=== PATIENT | male | born 1955 | race Caucasian/White ===

== ENCOUNTER 2018-05-03 09:45 | Emergency (ER) | payer OTHER, SELFPAY ==
[2018-05-03 09:47] VITALS: BP 161/86; PULSE 83; RESP 18; TEMP 37.1; O2SAT 99; BMI 32.5
--- NOTE | 2018-05-03 09:59 | RAD_ITS ---
STUDY: X-RAY - RIGHT HAND, ATTENTION FIFTH FINGER REASON FOR EXAM: Male, 62 years old. Laceration. TECHNIQUE: 3 view(s) of the finger were obtained. COMPARISON: None. FINDINGS: Normal metacarpal head. Normal metacarpophalangeal joint. There is demineralization of the proximal phalanx. There is demineralization of the middle phalanx. There is demineralization of the distal phalanx. There is moderate degenerative arthrosis of the proximal interphalangeal joint. There is moderate degenerative arthrosis of the distal interphalangeal joint. Soft tissue laceration. RAD/Finger(s) Min 2 Views IMPRESSION: Soft tissue laceration. Electronically Signed: Anish Pierre MD at 10:36 EST , Service support ,
[2018-05-03] MEDS: Diphth,Pertuss(Acell),Tet Vac 0.5 ML Vial IM (10:24)
--- NOTE | 2018-05-03 10:45 | ED.VISSUMM ---
- ER Visit Summary Date of Service: 05/03/18 Chief Complaint: [Laceration right small finger] History of Present Illness: The patient is a 62 M [presents to the emergency department after lacerating his right small finger while at work using a beveling bit that he was cutting pipe with. Patient states that somebody accidentally bumped into him causing his hand to touch the bit. Patient is right-hand dominant. Patient unsure of his last tetanus.] Physical Examination: [Right small finger-patient has a curvilinear 2.5 cm laceration over the dorsal lateral aspect of the right small finger onto the dorsum of the PIP joint. Patient has normal range of motion flexion extension at the PIP and DIP joints. He is neurovascular intact.] Test Results: [X-ray of the right small finger obtained showed no foreign bodies or fractures] Emergency Department Course and Treatment: [Laceration repair-wound sterilely draped and prepped. Wound anesthetized locally with 1% lidocaine total of 4 cc. Wound cleansed with Shur-Clens and irrigated with copious saline. There was a small oozing vessel that had to be ligated with 5-0 Vicryl to obtain good hemostasis. The wound was inspected and there was no evidence of tendon laceration. Wound was again irrigated with copious saline and using 5-0 nylon a total of 5 single interrupted sutures placed with good wound edge approximation. Patient tired procedure well. Clean dressing was applied.] Treatment Plan: [Patient will be given work restrictions and plan will be to have sutures removed in 10 days. Patient to return if increasing pain, redness, swelling, purulent drainage.] Disposition: [Discharged home in stable condition] Impression: [Laceration right small finger-simple repair 2.5 cm] This note was generated with [employer] software. It may contain incorrect words, spelling, and punctuation that were not noted in review of the chart prior to signing ED Disposition - Plan for ED Patient: Referrals: Amy Tinoco MD [Primary Care Provider] -
--- NOTE | 2018-05-03 10:48 | DCINST.ED_ITS ---
ED Disposition - Plan for ED Patient: Instructions: ED Laceration Hand Referrals: Amy Tinoco MD [Primary Care Provider] - [facility] [GROUP OF PHYSICIANS] - 10 Day for suture removal
== END 2018-05-03 11:30 | disposition home or self-care (01) ==
PROVIDERS: Emergency Provider Emergency Medicine; Family Provider Family Medicine; PCP Family Medicine
DX: S61.216A Laceration without foreign body of right little finger without damage to nail, initial encounter (principal); W26.8XXA Contact with other sharp object(s), not elsewhere classified, initial encounter; Y93.9 Activity, unspecified; Y92.89 Other specified places as the place of occurrence of the external cause; Y99.0 Civilian activity done for income or pay; I10 Essential (primary) hypertension
CPT/HCPCS: 12001; 73140; 90715; 99282

== ENCOUNTER 2021-01-11 00:09 | Emergency (ER) | payer OTHER, SELFPAY ==
[2021-01-11] VITALS (12 sets, daily range): BP systolic 91–155; BP diastolic 52–83; PULSE 54–63; RESP 14–19; TEMP 36.1; O2SAT 96–99; BMI 29.9
--- NOTE | 2021-01-11 00:12 | EKG12_ITS ---
Test Reason : STROKE Blood Pressure : / mmHG Vent. Rate : 060 BPM Atrial Rate : 060 BPM P-R Int : 216 ms QRS Dur : 112 ms QT Int : 464 ms P-R-T Axes : 064 046 042 degrees QTc Int : 464 ms Sinus rhythm with 1st degree A-V block Otherwise normal ECG Confirmed by ILA SMILEY, JOHNATHAN ([id number]), purchase request editor SHARLENE RODRIGUEZ ([id number]) on 01/13/2021 8:53:55 AM Referred By: LENNY Confirmed By:JOHNATHAN THORPE MD
--- NOTE | 2021-01-11 00:12 | CT_ITS ---
We are attempting to reach an attending provider to discuss findings. An addendum with communication details will be sent when the communication is complete. STUDY: CT HEAD STROKE PROTOCOL W/O CONTRAST INJECTION REASON FOR EXAM: Male, 65 years old. Neuro deficit, acute, stroke suspected slurred speech RADIATION DOSAGE (If Supplied By Facility): CTDIvol = ( ) mGy, DLP = ( ) mGycm TECHNIQUE: Transaxial CT imaging of the brain was performed without administration of intravenous contrast material. Individualized dose optimization techniques were used for this CT. COMPARISON: No relevant priors. FINDINGS: Normal soft tissue structures. Normal calvarium. There is mild cerebral atrophy with widening of the extra-axial spaces and ventricular dilatation. There are areas of decreased attenuation within the white matter tracts of the supratentorial brain, consistent with microvascular disease changes. Normal basal ganglia and thalami. Normal brainstem. There is mild cerebellar atrophy. There are focal areas of prior periventricular lacunar infarcts. There is no intracranial hemorrhage. There is a focus of low attenuation within the left side of the cerebellum suggesting prior ischemic change. There is also focus of low attenuation within the right frontal lobe suggesting prior ischemic change. Normal visualized paranasal sinuses. ASPECT score: 10 CT/STROKE Brain/Head without Cont IMPRESSION: Areas of prior ischemic change right frontal and left cerebellum without definitive evidence of acute infarct. There is no visualized hemorrhage. Recommend consideration for further imaging such as CT angiogram and/or MRI for further clarification. Electronically Signed: Madison Sykes MD at 0:27 EDT Tel , Service support ,
--- NOTE | 2021-01-11 00:22 | CT_ITS ---
STUDY: CTA HEAD AND NECK WITH CONTRAST REASON FOR EXAM: Male, 65 years old. Neuro deficit, acute, stroke suspected RADIATION DOSAGE (If Supplied By Facility): CTDIvol = ( 23.84 ) mGy, DLP = ( 709.44 ) mGycm TECHNIQUE: CT angiography was performed with a multi-detector CT scanner. Data acquisition was obtained from the skull base through the vertex following intravenous administration of IV 100mL [id number]-370. MIP images were reconstructed from the axial data set. Post-processing of the angiographic images was performed, with multiplanar reformation and 3D reconstruction. Individualized dose optimization techniques were used for this CT. COMPARISON: No relevant priors. FINDINGS: Normal bilateral petrous carotid arteries. Normal right cavernous carotid artery with a normal supraclinoid bifurcation. Normal left cavernous carotid artery with a normal supraclinoid bifurcation. There is slight narrowing in the distal right A1 segment. There is a beaded appearance of the right A1 segment and the left M2 segment suggesting an element of fibromuscular dysplasia. Normal left A1 segments of the anterior cerebral artery. Normal intact anterior communicating artery (ACOM). Normal bilateral A2 segments of the anterior cerebral arteries. Normal right M1 and M2 segments of the middle cerebral arteries, with a normal M1 bifurcation. The left M1 is of normal caliber. There is a lesser caliber of the left side insular M2 segment compared to the right. The vessel can be followed but is narrowed. Normal right posterior communicating artery (PCOM). Normal left posterior communicating artery (PCOM). There is an atretic appearance of the right-sided vertebral artery. There is a dominant left-sided vertebral artery. Normal basilar artery with a normal basilar bifurcation. The visualized bilateral superior cerebellar (SCA) arteries are normal. There is a hypoplastic right-sided P1 segment. There is a well contrasted posterior communicating artery. Normal bilateral P1, P2 and visualized diminutive P3 segments of the posterior cerebral arteries. There is limited visualization of the distal vessels allowing for technique. There is no demonstrated aneurysm of the elim ira of Rubio. There is visualized prior ischemic change in the right frontal lobe. The there is a small focus of prior ischemic change within the left cerebellum. AORTIC ARCH: There is partial calcification of the aortic arch. There is a bovine arch with a common takeoff of the left common carotid with the innominate. There is soft plaque and mild distention of the proximal left subclavian artery. RIGHT CAROTID ARTERIES: Normal right common carotid artery (CCA). There is minimal soft plaque demonstrated. There is mild atherosclerotic plaque formation of the origin of the right internal carotid artery with less than 50% cross sectional diameter stenosis. Normal visualized cervical portion of the right internal carotid artery. Normal origin of the right external carotid artery (ECA). LEFT CAROTID ARTERIES: There is atherosclerotic tortuous elongation of the left common carotid artery. There is mild atherosclerotic plaque formation with minimal narrowing of the left carotid bulb. Normal origin of the left internal carotid (ICA) artery without a hemodynamically significant stenosis. Normal visualized cervical portion of the left internal carotid artery. Normal origin of the left external carotid artery (ECA). VERTEBRAL ARTERIES: There is a mildly narrowed appearance of the takeoff of the left vertebral artery there is a hairpin turn. There is a greater caliber left vertebral artery throughout compared to the somewhat atretic appearing right-sided vertebral artery which remains patent and visualized into the foramen magnum where it is atretic and not well-visualized. There is a patulous distended appearance of the proximal esophagus. It measures up to 3.[address]/STROKE CTA Head AND Neck W/Con IMPRESSION: Atretic and/or stenotic right vertebral artery. No visualized large vessel occlusion. Diminutive appearance of the left M2 segment without visualized focal thrombus. Prior ischemic change right frontal lobe left cerebellum. No visualized focal area of abnormal enhancement. Findings are consistent with atrophy. There is atherosclerotic disease within the left proximal subclavian without occlusion. There is less than 50% stenosis of the right internal carotid artery no significant stenosis of the left internal carotid artery. Incidental visualization of a patulous distended proximal esophagus which can indicate distal obstruction and/or possible connective tissue disease. N.B. : The above Results were Read Back by Madison Sykes MD to Dr. Mandeep DO, and understanding confirmed on 01/11/2021 01:11:20 (ET). Electronically Signed: Madison Sykes MD at 1:11 EDT Tel , Service support ,
[2021-01-11 00:28] LABS: Absolute Lymphocyte Count 3.95 X10^3/uL (0.83-4.51); Absolute Neutrophil Count 4.4 X10^3/uL (2.0-7.7); Basophil# 0.04 X10^3/uL; Basophil% 0.4 % (0-1); Eosinophil# 0.21 X10^3/uL; Eosinophils% 2.2 % (0-5); Hematocrit 45.1 % (40-54); Hemoglobin 14.6 g/dL (13.0-16.5); Lymphocyte # 3.95 X10^3/ul (0.83-4.51); Lymphocyte % 41.8 % (19-41); Mean Corp Hgb Conc 32.4 g/dL (32-36); Mean Corpuscular Hgb 27.5 pg (27.0-32.0); Mean Corpuscular Volume 84.9 fL (80-94); Mean Platelet Vol. 10.7 fl (6.2-12.0); Monocyte# 0.83 X10^3/uL; Monocyte% 8.8 % (0-10); NRBC Flagged by Analyzer 0 % (0-5); Neutrophil % 46.5 % (47-70); Platelet Count 179 K/mm3 (150-450); RBC Distribution Width CV 13.5 % (11.6-14.6); RBC Distribution Width SD 42.2 fl (35.1-43.9); Red Blood Count 5.31 M/mm3 (4.6-6.2); White Blood Count 9.5 K/mm3 (4.4-11.0)
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
--- NOTE | 2021-01-11 00:37 | ED.RN ---
PT CONTINUOUSLY REPEATING YOU DON'T LIKE ME, YOU DON'T FUCKING CARE ABOUT ME. NOBODY LOVES ME OR GIVES A FUCK ABOUT ME. FUCK THIS, FUCK ME, FUCK YOU ALL.
[2021-01-11 00:46] LABS: Anion Gap 9 (5-15); BUN 17 mg/dL (7-18); Calcium,Total 9.1 mg/dL (8.5-10.1); Chloride 111 mmol/L (98-107); Creatinine, Serum 0.74 mg/dL (0.70-1.30); EST Glomerular Filtration Rate 113 mL/min (>60); Est Glom Filt Rate - Afr Amer 137 mL/min (>60); Estimated Creatinine Clearance 110.69 ml/min; Glucose 125 mg/dL (74-106); Potassium 3.6 mmol/L (3.5-5.1); Sodium Level 141 mmol/L (136-145); Troponin-I HS 13 pg/mL (3.0-78.0)
[2021-01-11] MEDS: Ondansetron 4 MG/2 ML Vial IV (01:00)
[2021-01-11 01:02] LABS: International Normalized Ratio 1.1; Prothrombin Time (Protime)PT. 13.8 SECONDS (11.7-14.9)
[2021-01-11 01:03] LABS: Partial Thromboplast Time 27.2 Seconds (24.1-36.2)
--- NOTE | 2021-01-11 01:05 | RAD_ITS ---
STUDY: X-RAY CHEST REASON FOR EXAM: Male, 65 years old. Neuro deficit, acute, stroke suspected TECHNIQUE: Single AP portable view of the chest. COMPARISON: None. FINDINGS: There is minimal lower lobe atelectasis. There is no demonstrated pleural abnormality. There is mild cardiac enlargement. Normal mediastinum and jane. Normal visualized pulmonary arteries. There is atherosclerotic calcification of the aortic arch with tortuosity. Normal visualized thoracic spine. Normal visualized ribs, clavicles, and shoulders. There is no demonstrated abnormality of the visualized soft tissue structures of the upper abdomen. RAD/Chest 1 View IMPRESSION: Mild cardiac enlargement. Lower lobe atelectasis. Electronically Signed: Madison Sykes MD at 1:54 EDT Tel , Service support ,
[2021-01-11 01:31] LABS: Amphetamine Urine VISTA NEGATIVE (<1000 ng/mL); Barbiturate Urine VISTA NEGATIVE (< 200 ng/mL); Benzodiazepine Urine VISTA NEGATIVE (< 200 ng/mL); Cocaine Urine VISTA NEGATIVE (< 300 ng/mL); Ecstacy Urine VISTA NEGATIVE (< 500 ng/mL); Methadone Urine VISTA NEGATIVE (< 300 ng/mL); PCP Urine VISTA NEGATIVE (< 25 ng/mL); THC Urine VISTA NEGATIVE (< 50 ng/mL); Vista UDS pH Range 5
--- NOTE | 2021-01-11 01:36 | ED.RN ---
STROKE ALERT AND CHARTING DOCUMENTATION DISCONTINUED PER DR. GALVEZ.
--- NOTE | 2021-01-11 01:50 | ED.RN ---
GIRLFRIEND MAGUI [phone]; DAUGHTER JEFFERSON [phone]
== END 2021-01-11 10:00 | disposition home or self-care (01) ==
PROVIDERS: Emergency Provider Student in an Organized Health Care Education/Training Program
DX: F10.129 Alcohol abuse with intoxication, unspecified (principal); E11.9 Type 2 diabetes mellitus without complications; I10 Essential (primary) hypertension; E66.9 Obesity, unspecified; Z79.84 Long term (current) use of oral hypoglycemic drugs; Z79.899 Other long term (current) drug therapy; Y90.8 Blood alcohol level of 240 mg/100 ml or more
CPT/HCPCS: 36415; 70450; 70496; 70498; 71045; 80048; 80307; 82077; 84484; 85025; 85610; 85730; 93005; 96374; 99285; Q9967; A4216; J2405

== ENCOUNTER → 2022-02-24 | Outpatient (CLI) | payer OTHER, SELFPAY ==
--- NOTE | 2022-02-24 15:43 | MRI_ITS ---
STUDY: MRA NECK WITH AND WITHOUT CONTRAST REASON FOR EXAM: Male, 66 years old. NEW ONSET HEADACHESX 4 MONS, PRIOR TIA 12/2020 TECHNIQUE: 3-D yete-rj-shpmly (TOF) imaging was performed in an 1.5 T MRI scanner. CLARISCAN IV 20 CC was administered for the contrast enhanced images. COMPARISON: None. FINDINGS: RIGHT CAROTID ARTERIES: Normal right common carotid artery (CCA). Normal right common carotid bulb. Normal origin of the right internal carotid (ICA) artery without a hemodynamically significant stenosis. Normal visualized cervical portion of the right internal carotid artery. Normal origin of the right external carotid artery (ECA). LEFT CAROTID ARTERIES: Normal left common carotid artery (CCA). Normal left common carotid bulb. Normal origin of the left internal carotid (ICA) artery without a hemodynamically significant stenosis. Normal visualized cervical portion of the left internal carotid artery. Normal origin of the left external carotid artery (ECA). VERTEBRAL ARTERIES: Left vertebral is dominant. There is diffuse narrowing of the right vertebral which terminates in PICA consistent with normal variant MRI/MRA Neck WITH and W/O Contrast IMPRESSION: Normal bilateral cervical carotid and vertebral arteries. Electronically Signed: Parviz Jernigan MD at 17:53 EST ,
--- NOTE | 2022-02-24 15:43 | MRI_ITS ---
STUDY: MRI BRAIN WITH AND WITHOUT CONTRAST REASON FOR EXAM: Male, 66 years old. NEW ONSET HEADACHES X 4 MONS, PRIOR TIA 12/2020 TECHNIQUE: Multiplanar multisequence imaging of the brain was performed without and following the administration of intravenous contrast. 20 cc clariscan given intravenously. COMPARISON: Noncontrast head CT 01/11/2021 FINDINGS: The ventricles, cisterns, and sulci are within are prominent. Extensive white matter T2 signal abnormality. There is no restricted diffusion to suggest acute ischemia or infarction. No susceptibility artifact to suggest intracranial hemorrhage or mineralization. Major intracranial signal voids are preserved. There is no midline shift, mass effect, or extra axial fluid collections are seen. No CP angle or IAC mass is seen. The orbits are unremarkable. The sella turcica and craniovertebral junction are within normal limits. The visualized paranasal sinuses are clear. The mastoid air cells are clear. No abnormal enhancement is seen. MRI/Brain W/WO Contrast IMPRESSION: No intracranial hemorrhage, acute infarct, or space occupying lesion seen. Electronically Signed: Jack Guerra MD at 22:03 EST ,
--- NOTE | 2022-02-24 15:43 | MRI_ITS ---
STUDY: MRA OF THE HEAD WITHOUT CONTRAST REASON FOR EXAM: Male, 66 years old. NEW ONSET HEADACHESX 4 MONS, PRIOR TIA 12/2020 TECHNIQUE: 3-D lisl-xr-brhhwp (TOF) imaging was performed with MIPs. The study was performed unenhanced. COMPARISON: None. FINDINGS: Normal bilateral petrous carotid arteries. Normal right cavernous carotid artery with a normal supraclinoid bifurcation. Normal left cavernous carotid artery with a normal supraclinoid bifurcation. Normal right A1 segments of the anterior cerebral artery. Normal left A1 segments of the anterior cerebral artery. Normal intact anterior communicating artery (ACOM). Normal bilateral A2 segments of the anterior cerebral arteries. Normal right M1 and M2 segments of the middle cerebral arteries, with a normal M1 bifurcation. Normal left M1 and M2 segments of the middle cerebral arteries, with a normal M1 bifurcation. Normal right posterior communicating artery (PCOM). Normal left posterior communicating artery (PCOM). Left vertebral is normal. Distal right vertebral was not visualized Normal basilar artery with a normal basilar bifurcation. The visualized bilateral superior cerebellar (SCA) arteries are normal. Normal bilateral P1, P2 and visualized P3 segments of the posterior cerebral arteries. There is no demonstrated aneurysm of the [place]. There is no major vessel occlusion or hemodynamically significant stenosis. MRI/MRA Head ONLY without Contrast IMPRESSION: Nonvisualization of the distal right vertebral possibly due to proximal obstruction. Otherwise normal MRA of the brain Electronically Signed: Parviz Jernigan MD at 17:52 EST ,
[2022-02-24 16:25] LABS: CREATININE FINGERSTICK < 0.9 mg/dL (0.70-1.30); EGFR FINGERSTICK > 60.0000 mL/min (>60)
== END | disposition home or self-care (01) ==
LOC: MRI 15:35
PROVIDERS: PCP Family Medicine; Visit Provider Nurse Practitioner Primary Care
DX: R51.9 Headache, unspecified (principal); Z86.73 Personal history of transient ischemic attack (TIA), and cerebral infarction without residual deficits
CPT/HCPCS: 70544; 70549; 70553; A9575; A4216

== ENCOUNTER 2022-06-14 11:05 | Emergency (ER) | payer OTHER, MEDICARE, SELFPAY ==
[2022-06-14 11:07] VITALS: BP 157/70; PULSE 60; RESP 16; TEMP 36.6; O2SAT 100; BMI 31.1
--- NOTE | 2022-06-14 12:06 | EDS_ITS ---
HPI History of Present Illness HPI Narrative: Patient presents with lacerations to his right middle and ring fingers that occurred today while he was at work. Patient states he was using a drill and the piece of metal that he was drilling was caught in the drill and began to spin around. Patient states he was hit by the edge of the metal piece. Patient denies any paresthesias or weakness. Patient states bleeding stopped after several minutes of pressure. Patient is unsure of his last tetanus. Chief Complaint: Laceration Informant: patient Occured/Mechanism Mechanism/Context: Yes blunt trauma Onset/Context/Timing Onset: Today Context: Sudden Onset Timing: Continuous Quality of Pain: Dull Location: Right middle and ring fingers Worsened by: Nothing Relieved by: Nothing Associated Symptoms Associated Symptoms: Negative for Parasthesia, Weakness or Loss of Funtion Narrative Tetanus Immunization: Unknown [facility] Medical History (Updated 06/14/22 @ 16:[address] Jhon Rodriguez DO) DM type 2 (diabetes mellitus, type 2) HTN (hypertension) Home Medications metformin 500 mg tablet,extended release 24 hr 500 mg PO DAILY 01/11/21 [History Last Taken Unknown] metoprolol succinate 50 mg tablet,extended release 24 hr 50 mg PO DAILY 01/11/21 [History Last Taken Unknown] cephalexin 500 mg capsule 500 mg PO Q6 #40 CAPSULES 06/14/22 [Rx Last Taken Unknown] Allergy/AdvReac Type Severity Reaction Status Date / Time No Known Allergies Allergy Verified 06/14/22 11:30 Surgical History (Updated 06/14/22 @ 12:[address] Jhon Rodriguez DO) History of gastric surgery History of surgery on right wrist Social History Smoking Status: Never smoker alcohol intake: current alcohol intake frequency: holidays/special occasions only Alcohol type: hard liquor ROS ROS ED Constitutional Constitutional ED: Denies chills or fever(s) Eyes Eyes: Denies blurry vision or change in vision ENT ENT ED: Denies rhinorrhea or sore throat Cardiovascular Cardiovascular: Denies chest pain or palpitations Respiratory/Chest Respiratory/Chest: Denies cough or dyspnea Gastrointestinal Gastrointestinal: Denies nausea or vomiting Genitourinary Genitourinary ED: Denies dysuria or hematuria Musculoskeletal Musculoskeletal: Denies back pain or neck pain Integumentary Denies abscess or rash Neurologic Neurologic: Denies headache(s) or weakness Allergic/Immunologic Allergic/Immunologic ED: Denies mouth swelling or urticaria EXAM Physical Exam Const Vital Signs: 06/14/22 11:07 Temperature 97.8 F Temperature Source Temporal Pulse Rate 60 Respiratory Rate 16 Blood Pressure 157/70 H Blood Pressure Mean 99 Pulse Ox 100 Oxygen Delivery Method Room Air Positive well nourished and well developed General Appearance ED: well developed and NAD HEENT Reports moist mucous membranes Neck full ROM and supple Extremity Extremity Narrative: There is a 1.5 cm laceration over the distal phalanx of the right middle finger near the nail plate. There is moderate gapping of the wound margins. There is no bleeding noted. There is no bony crepitance or step-off noted. There is a 2 cm full-thickness linear laceration over the ulnar aspect of the proximal phalanx of the right middle finger. There is no bony crepitance or step-off noted. There are no foreign bodies noted. There is no active bleeding noted. There is also a 2 cm full-thickness linear laceration over the volar aspect of the base of the proximal phalanx of the right ring finger that extends along the radial aspect of the proximal phalanx. There is mild gapping of the wound margins. There are no foreign bodies noted. There is no active bleeding noted. There is no bony crepitance or step-off noted. There is also a 0.5 cm full- thickness linear laceration on the palmar aspect of the right hand in the webspace between the ring and middle fingers. There is moderate gapping of the wound margins. There is no bleeding. There are no foreign bodies noted. There is full range of motion of the MP, PIP, and DIP joints of all digits. Capillary refills less than 2 seconds in all digits. Sensation was intact to light touch in all digits. Neuro oriented x3, CN's II-XII intact bilaterally, moves all extremities, no focal motor deficits and no sensory deficits noted Sensorium / Orientation: alert Motor Exam: strength 5/5 throughout Psych mental status grossly normal MDM MDM MDM Narrative Medical decision making narrative: I do not feel there is a fracture in the fingers. He has full range of motion. There is no obvious deformity. Therefore, x-rays will not be necessary at this time. Treatment and Re-Evaluation Narrative: The wounds were cleaned and irrigated with copious amounts of normal saline. The wounds were anesthetized with 1% lidocaine locally and the right middle finger was anesthetized with 1% plain lidocaine via digital block. The wound on the ulnar aspect of the proximal phalanx of the right middle finger was closed with 5 simple interrupted #4-0 Ethilon sutures. The wound on the radial aspect of the proximal phalanx of the right ring finger was closed with 5 simple interrupted #4-0 Ethilon sutures. The wound on the palmar aspect of the right hand between the ring and long fingers was closed with 2 simple interrupted #4-0 Ethilon sutures. The wound at the tip of the right middle finger was closed with 3 simple interrupted #4-0 Ethilon sutures. This was all done under sterile technique. Patient tolerated the procedure well. Bacitracin dressings were applied. Patient was given a dose of Keflex here. Patient was given a prescription for Keflex. Patient was instructed to follow-up with his primary care physician or the [facility] in 5 days for wound recheck and suture removal. Patient understood and was agreeable with the plan. All questions were answered. Procedures Lacerations Distal phalanx right middle finger: Length: 0.5 cm Depth: Sub Q Shape: Linear Prep: Sterile Conditions and Chlorhexadine Laceration repair: Digital block, Irrigated, Lidocaine and Skin sutures Irrigated (ml): 100 Number of Sutures/Addison: 3 Suture Information: Ethilon, Simple and 4-0 Right palm between ring and middle fingers: Length: 0.5 cm Depth: Sub Q Shape: Linear Prep: Sterile Conditions and Chlorhexadine Laceration repair: Irrigated, Lidocaine, Local, Skin sutures and Wound explored Irrigated (ml): 100 Number of Sutures/Addison: 2 Suture Information: Ethilon, Simple and 4-0 Proximal phalanx right middle finger: Length: 2 cm Depth: Sub Q Shape: Linear Prep: Sterile Conditions and Chlorhexadine Laceration repair: Irrigated, Lidocaine, Local, Skin sutures and Wound explored Irrigated (ml): 100 Number of Sutures/Addison: 5 Suture Information: Ethilon and 4-0 Proximal phalanx right ring finger: Length: 2 cm Depth: Sub Q Shape: Linear Prep: Sterile Conditions and Chlorhexadine Laceration repair: Irrigated, Lidocaine, Local, Skin sutures and Wound explored Irrigated (ml): 100 Number of Sutures/Addison: 5 Suture Information: Ethilon and 4-0 Discharge Plan Triage Chief Complaint: Laceration ED Provider: Jhon Rodriguez Dx/Rx/DC Orders Clinical Impression: Laceration of right middle finger, Laceration of right ring finger Instructions: ED Laceration, Hand: All Closures Prescriptions: New cephalexin [cephalexin] 500 mg capsule 500 mg PO Q6 Qty: 40 0RF No Action metoprolol succinate 50 mg tablet extended release 24 hr 50 mg PO DAILY metformin 500 mg tablet extended release 24 hr 500 mg PO DAILY Stand Alone Forms: Work Status Form Primary Care Provider: Amy Fair Referrals: Amy Fair, [Primary Care Provider] - 7 Days for suture removal [facility] [Non-Staff] - 7 Days for suture removal Disposition Disposition: Home, Self Care
[2022-06-14] MEDS: Diphth,Pertuss(Acell),Tet Vac 0.5 ML Vial IM (13:00)
[2022-06-14] MEDS: Lidocaine 1% (20 ml mdv) 20 ML Vial INFILT (13:04)
[2022-06-14 15:11] VITALS: RESP 16
[2022-06-14] MEDS: Cephalexin 500 MG Capsule PO (16:07)
[2022-06-14 16:44] VITALS: RESP 17
--- NOTE | 2022-06-14 16:45 | ED.RN ---
PER DR. CASH, APPLY BACITRACIN, NONADHERENT PAD, AND GAUZE WRAP TO SUTURE SITES.
== END 2022-06-14 16:47 | disposition home or self-care (01) ==
PROVIDERS: Emergency Provider Emergency Medicine; PCP Family Medicine; Visit Provider Emergency Medicine
DX: S61.212A Laceration without foreign body of right middle finger without damage to nail, initial encounter (principal); E11.9 Type 2 diabetes mellitus without complications; S61.214A Laceration without foreign body of right ring finger without damage to nail, initial encounter; I10 Essential (primary) hypertension; W26.8XXA Contact with other sharp object(s), not elsewhere classified, initial encounter; Y99.0 Civilian activity done for income or pay; Z23 Encounter for immunization
CPT/HCPCS: 12002; 90471; 90715; 99283

== ENCOUNTER 2023-02-01 14:06 | Emergency (ER) | payer OTHER, SELFPAY ==
[2023-02-01 14:09] VITALS: BP 167/79; PULSE 55; RESP 16; TEMP 36.1; O2SAT 96
--- NOTE | 2023-02-01 14:23 | ED.RN ---
THIS RN GAVE PATIENT PAMPHLET AND INFORMATION TO GO TO THE [facility] AFTER HIS ED VISIT TO COMPLETE HIS DRUG SCREEN FOR WORKMAN'S COMP. PT VERBALIZES UNDERSTANDING.
--- NOTE | 2023-02-01 14:24 | EDS_ITS ---
HPI <ZINA Bosch - Last Filed: 02/01/23 15:31> History of Present Illness Chief Complaint: Upper Extremity Injury Narrative Narrative: 67-year-old male sustained an injury at work where his left ring finger was smashed between a brass bar and a table amputating the fingertip. Bleeding is controlled with a gauze dressing. He denies weakness or paresthesias. Last tetanus unknown. PFSH <ZINA Bosch - Last Filed: 02/01/23 15:31> PFSH Medical History DM type 2 (diabetes mellitus, type 2) HTN (hypertension) Laceration of right middle finger Laceration of right ring finger Home Medications metformin 500 mg tablet,extended release 24 hr 500 mg PO DAILY 01/11/21 [History Last Taken Unknown] metoprolol succinate 50 mg tablet,extended release 24 hr 50 mg PO DAILY 01/11/21 [History Last Taken Unknown] losartan 50 mg tablet ea PO 06/22/22 [History Last Taken Unknown] omeprazole 40 mg capsule,delayed release ea PO 06/22/22 [History Last Taken Unknown] simvastatin 40 mg tablet ea PO 06/22/22 [History Last Taken Unknown] Allergy/AdvReac Type Severity Reaction Status Date / Time No Known Allergies Allergy Verified 02/01/23 14:07 Surgical History History of gastric surgery History of surgery on right wrist Social History Smoking Status: Never smoker alcohol intake: current alcohol intake frequency: holidays/special occasions only Alcohol type: hard liquor ROS <ZINA Bosch - Last Filed: 02/01/23 15:31> ROS ED ROS Narrative Neuro: Negative for motor/sensory dysfunction. Skin: Positive for wound. Musc: Positive for finger pain, trauma. Heme: Negative for easy bruising, bleeding, lymphadenopathy. EXAM <ZINA Bosch - Last Filed: 02/01/23 15:31> Physical Exam Narrative Exam Narrative: CONST: Patient sitting in no acute distress. EYES: Normal inspection. NECK: Normal inspection. RESP: No respiratory distress, CTAB. CVS: Regular rate and rhythm, no murmur, no gallop. SKIN: Color normal, no rash, warm, dry, intact. EXTREMITIES: Skin avulsion of the left ring finger tip, no involvement of the nail. Slow active bleeding, no visible or palpable bone exposed. Full ROM of all joints, normal motor and sensory function in median radial and ulnar distributions, 2+ radial pulse. NEURO: Oriented x4. PSYCH: Normal affect. Const Vital Signs: 02/01/23 14:09 Temperature 97.0 F L Temperature Source Temporal Pulse Rate 55 L Respiratory Rate 16 Blood Pressure 167/79 H Blood Pressure Mean 108 Pulse Ox 96 Oxygen Delivery Method Room Air [facility] <ZINA Bosch - Last Filed: 02/01/23 15:31> [facility] Narrative Medical decision making narrative: Patient hasworkplace injury causing skin avulsion of the left ring finger. There is no exposed bone. Slow active bleeding. Neurovascularly intact. X-ray shows no bony involvement so this is not an open fracture. I performed a digital block, prepped and draped in sterile condition, thoroughly cleansed with soap and water and placed 5 simple interrupted sutures of 4-0 Ethilon to close the area as best as possible and limit bleeding. Bulky bandages applied with a splint and tetanus updated. He will follow-up with occupational health and was discharged in stable condition. I have personally performed a face to face assessment of the patient and have reviewed the JOHN Note. I performed a substantive portion of the visit including all aspects of the following. My brice findings include: History is a 67-year-old male [id number]. At work today had his left ring finger caught between a bar and piece of metal. At the distal tip of the left ring finger amputated. Unsure of his last tetanus. No other injuries. Tetanus to be updated. Exam is [well-appearing 67-year-old male. Vital signs stable afebrile. HEENT exam unremarkable. Lungs clear. Heart regular rhythm no murmur. Chest wall and ribs nontender. Abdomen soft nontender. In all 4 extremities. Neurovascular intact. Left hand, left ring finger at the distal tip soft tissues been amputated. There is good coverage of the distal phalanx. There is no exposed bone. Minimal oozing of blood. No pulsatile bleeding. Normal range of motion. Normal touch sensation. Neurologic exam is normal. He is awake and alert.] Medical Decision Making [67-year-old male. Left ring finger distal tip soft tissue amputation. Tetanus updated. X-ray. Will be sutured closed.] Other additions or changes: [None] <Dr. Timmy Vela MD - Last Filed: 02/01/23 15:01> [facility] Narrative Medical decision making narrative: I have personally performed a face to face assessment of the patient and have reviewed the JOHN Note. I performed a substantive portion of the visit including all aspects of the following. My brice findings include: History is a 67-year-old male [id number]. At work today had his left ring finger caught between a bar and piece of metal. At the distal tip of the left ring finger amputated. Unsure of his last tetanus. No other injuries. Tetanus to be updated. Exam is [well-appearing 67-year-old male. Vital signs stable afebrile. HEENT exam unremarkable. Lungs clear. Heart regular rhythm no murmur. Chest wall and ribs nontender. Abdomen soft nontender. In all 4 extremities. Neurovascular intact. Left hand, left ring finger at the distal tip soft tissues been amputated. There is good coverage of the distal phalanx. There is no exposed bone. Minimal oozing of blood. No pulsatile bleeding. Normal range of motion. Normal touch sensation. Neurologic exam is normal. He is awake and alert.] Medical Decision Making [67-year-old male. Left ring finger distal tip soft tissue amputation. Tetanus updated. X-ray. Will be sutured closed.] Other additions or changes: [None] History & Record Review Discussion w/independent historian: Patient Additional record(s) reviewed:: Prior inpatient record, Prior outpatient record, Prior ED visit and Prior labs Radiography Diagnostic Testing: Left ring finger x-ray, 3 views, interpreted by myself shows degenerative arth ritis. No acute fracture. The bone is not involved in the distal tip amputation. Discharge Plan Triage Chief Complaint: Upper Extremity Injury ED Midlevel Provider: Reyna Waggoner ED Provider: Timmy Vela Dx/Rx/DC Orders Clinical Impression: Encounter related to worker's compensation claim, Traumatic amputation of left ring finger Instructions: ED Finger Tip Amputation Open ... Prescriptions: No Action simvastatin 40 mg tablet PO Patient Comments: TAKE 1 TABLET BY MOUTH EVERY DAY AT BEDTIME omeprazole 40 mg capsule,delayed release(DR/EC) PO Patient Comments: TAKE 1 CAPSULE BY MOUTH DAILY IN THE MORNING losartan 50 mg tablet PO Patient Comments: TAKE 1 TABLET BY MOUTH EVERY DAY metoprolol succinate 50 mg tablet extended release 24 hr 50 mg PO DAILY metformin 500 mg tablet extended release 24 hr 500 mg PO DAILY Primary Care Provider: Amy Fair Referrals: [facility] [Group of Physicians] - 10-14 Days suture removal Amy Fair DO [Primary Care Provider] - Activity Restrictions/Additional Instructions: Our dressing stays dry and clean leave it on for days. Then remove it and change daily. Clean the wound gently and carefully daily with soap and water. Apply antibiotic ointment daily. Watch for any signs of infection such as pus, swelling, red streaks or fever if seen return. Stitches need removed in 10-14 days. This will take weeks to months to heal but long-term it should look good. Disposition Disposition: Home, Self Care
[2023-02-01] MEDS: Diphth,Pertuss(Acell),Tet Vac 0.5 ML Vial IM (14:42)
[2023-02-01] MEDS: Lidocaine 1% (20 ml mdv) 20 ML Vial 10 ML INFILT (14:43)
[2023-02-01 14:45] VITALS: BMI 32.1
--- NOTE | 2023-02-01 14:50 | RAD_ITS ---
STUDY: X-RAY - LEFT HAND, ATTENTION RING FINGER REASON FOR EXAM: Male, 67 years old. left ring finger laceration TECHNIQUE: 4 view(s) of the finger were obtained. COMPARISON: None. FINDINGS: Normal metacarpal head. Normal metacarpophalangeal joint. Normal proximal phalanx. Normal middle phalanx. Normal distal phalanx. Normal proximal interphalangeal joint. Degenerative changes of the distal interphalangeal joint. Diffuse soft tissue laceration of the distal finger . No radiopaque foreign bodies in the soft tissues RAD/Finger(s) Min 2 Views IMPRESSION: Soft tissue laceration without radiopaque foreign bodies in the soft tissues. . No acute fracture identified Electronically Signed: Parviz Jernigan MD at 16:36 EST ,
== END 2023-02-01 16:04 | disposition home or self-care (01) ==
PROVIDERS: Emergency Provider Emergency Medicine; PCP Family Medicine; Visit Provider Emergency Medicine
DX: S68.115A Complete traumatic metacarpophalangeal amputation of left ring finger, initial encounter (principal); E11.9 Type 2 diabetes mellitus without complications; I10 Essential (primary) hypertension; Z23 Encounter for immunization; W31.89XA Contact with other specified machinery, initial encounter; Y99.0 Civilian activity done for income or pay
CPT/HCPCS: 11750; 73140; 90471; 90715; 99284